=== PATIENT | female | born 1965 | race Caucasian/White ===

== ENCOUNTER 2018-06-10 18:52 | Observation (INO) | payer MEDICAID ==
[2018-06-10 19:17] VITALS: BMI 33.0
[2018-06-10] MEDS ORDERED: Benzocaine/Butamben/Tetracai 14-2-2% TOP Spray TOP STA (19:29)
--- NOTE | 2018-06-10 20:17 | ED PDOC ---
Arrival/HPI - General Chief Complaint: ENT Problem Time Seen by Provider: 06/10/18 19:24 Historian: Patient - History of Present Illness Narrative History of Present Illness (Text): 06/10/18 19:29 Sadi Ramos is a 52 year old female who presents to the Emergency department complaining of a foreign body sensation in her throat. Patient states she has a brewer bone stuck in her throat after eating brewer this evening. Patient notes she choked on the bone and her performed the Heimlich maneuver on her but is still feels something stuck in her throat. Patient denies any vomiting, shortness of breath, chest pain, abdominal pain, or any other complaints. Symptom Onset: Gradual Symptom Course: Unchanged Activities at Onset: Eating Context: Home Past Medical History - Provider Review Nursing Documentation Reviewed: Yes - Infectious Disease Hx of Infectious Diseases: None - Psychiatric Hx Substance Use: No - Surgical History Hx Section: Yes Hx Hysterectomy: Yes Family/Social History - Physician Review Nursing Documentation Reviewed: Yes Family/Social History: Unknown Family HX Smoking Status: Never Smoked Hx Alcohol Use: No Hx Substance Use: No Allergies/Home Meds Allergies/Adverse Reactions: Allergies No Known Allergies Allergy (Verified 06/10/18 19:16) Home Medications: Home Meds Medication Instructions Recorded Confirmed No Known Home Med 06/10/18 06/10/18 Review of Systems - Physician Review All systems were reviewed & negative as marked: Yes - Review of Systems Constitutional: Normal. absent: Fevers Eyes: Normal ENT: Other (+foreign body sensation in throat) Respiratory: Normal. absent: SOB, Cough Cardiovascular: Normal. absent: Chest Pain Gastrointestinal: Normal. absent: Abdominal Pain, Diarrhea, Nausea, Vomiting Genitourinary Female: Normal. absent: Dysuria, Frequency, Hematuria, Urine Output Changes Musculoskeletal: Normal. absent: Back Pain, Neck Pain Skin: Normal. absent: Rash Neurological: Normal. absent: Headache, Dizziness Endocrine: Normal Hemo/Lymphatic: Normal Psychiatric: Normal Physical Exam Vital Signs Reviewed: Yes Vital Signs Temp Pulse Resp BP Pulse Ox 06/10/18 19:17 97.6 F 93 H 18 141/97 H 95 Temperature: Afebrile Blood Pressure: Normal Pulse: Regular Respiratory Rate: Normal Appearance: Positive for: Well-Appearing, Non-Toxic, Comfortable Pain Distress: None Mental Status: Positive for: Alert and Oriented X 3 - Systems Exam Head: Present: Atraumatic, Normocephalic Pupils: Present: PERRL Extroacular Muscles: Present: EOMI Conjunctiva: Present: Normal Mouth: Present: Moist Mucous Membranes Neck: Present: Normal Range of Motion Respiratory/Chest: Present: Clear to Auscultation, Good Air Exchange. No: Respiratory Distress, Accessory Muscle Use Cardiovascular: Present: Regular Rate and Rhythm, Normal S1, S2. No: Murmurs Abdomen: No: Tenderness, Distention, Peritoneal Signs Back: Present: Normal Inspection Upper Extremity: Present: Normal Inspection. No: Cyanosis, Edema Lower Extremity: Present: Normal Inspection. No: Edema Neurological: Present: GCS=15, CN II-XII Intact, Speech Normal Skin: Present: Warm, Dry, Normal Color. No: Rashes Psychiatric: Present: Alert, Oriented x 3, Normal Insight, Normal Concentration Medical Decision Making ED Course and Treatment: 06/10/18 19:29 Impression: 52 year old female complaining of a foreign body sensation in throat after eating brewer. Plan: -- CT Neck Soft Tissue w/o contrast -- Cetacaine -- Reassess and disposition Prior Visits: Notes and results from previous visits were reviewed. Progress Notes: 06/10/18 20:[address] Munoz, ENT, who is aware and agrees with plan. Pending CT Neck Soft Tissue. 06/10/18 23:15 CT Neck Soft Tissue: ESOPHAGUS: An approximately 1.6 x 0.4 cm linear hyperdense object is seen in the lower cervical esophagus anterior to the C5-6, C6-7 levels thought compatible with a bone. This corresponds with the given history. PHARYNX: Unremarkable appearance of the nasopharynx, oropharyx, and hypopharynx. No pharyngeal mucosal based mass lesions. LARYNX: Normal appearance of the larynx. Unremarkable epiglottis. RETROPHARYNGEAL SPACE: The retropharyngeal soft tissues appear within normal limits. SALIVARY GLANDS: Unremarkable appearance of the parotid, submandibular, and sublingual glands. LYMPH NODES: Multiple bilateral anterior chain lymph nodes are present; several of which are mildly enlarged bilaterally. THYROID: Unremarkable appearance of the thyroid. No thyroid nodule seen. BONES: No aggressive appearing osseous lesion. No acute osseous abnormality. Anterior marginal spurring arises from C6-C7. IMPRESSION: 1. A 1.6 x 0.4 cm bone fragment is seen in the lower cervical esophagus anterior to the C5-6, C6-7 levels. 2. Bilateral anterior chain lymph nodes noted; several of which are mildly enlarged bilaterally. Electronically signed on Jun 10, 2018 11:12:26 PM EDT by: Hamzah Rider M.D., TREVOR Certified By [facility] Fellowship Trained MRI and CT Specialist 06/10/18 23:[address] Munoz, recommends GI consult due to location of foreign body. 06/10/18 23:[address] Ramirez, GI, who states he will come in to perform foreign body removal. 06/10/18 23:45 Reviewed EKG, NSR at 87 bpm[address] Non-specific ST/T wave changes. - Lab Interpretations I have reviewed the lab results: Yes - RAD Interpretation Suture Polisher: Radiologist - EKG Interpretation Interpreted by ED Physician: Yes Type: 12 lead EKG - Medication Orders Current Medication Orders: Discontinued Medications Benzocaine/Butamben/Tetracaine HCl (Cetacaine 14%-2%-2% 56 Gm) 20 spry TOP STAT STA Stop: 06/10/18 19:30 Last Admin: 06/10/18 19:50 Dose: 20 spry - Scribe Statement The provider has reviewed the documentation as recorded by the Wolf Farris Provider Scribe Attestation: All medical record entries made by the Scribe were at my direction and personally dictated by me. I have reviewed the chart and agree that the record accurately reflects my personal performance of the history, physical exam, medical decision making, and the department course for this patient. I have also personally directed, reviewed, and agree with the discharge instructions and disposition. Disposition/Present on Arrival - Present on Arrival History of DVT/PE: No History of Uncontrolled Diabetes: No Urinary Catheter: No History of Decub. Ulcer: No History Surgical Site Infection Following: None - Disposition Forms: [employer] (Arabic)
[2018-06-10] MEDS ORDERED: Sodium Chloride 0.9% 1,000 ML IV SCH (23:45)
[2018-06-10] MEDS ORDERED: Morphine 2 mg/ml ISec IVP STA (23:47)
[2018-06-10] MEDS ORDERED: Sevoflurane - Inhalation Anesthetic Liq (250 ml) ONE (23:51)
[2018-06-10 23:53] LABS: ALBUMIN 4.1 g/dL (3.0-4.8); ALT/SGPT 11 U/L (7-56); AST/SGOT 25 U/L (14-36); BLOOD UREA NITROGEN 15 mg/dL (7-21); CALCIUM 9.1 mg/dL (8.4-10.5); GFR NON-AFRICAN AMERICAN > 60
[2018-06-10] MEDS ORDERED: Propofol 10 mg/ml Inj (20 ML) ONE (23:55)
[2018-06-10] MEDS ORDERED: Succinylcholine 200 mg/10 ml Inj IV ONE (23:56)
[2018-06-10 23:58] LABS: BASO # 0.02 K/mm3 (0.0-2.0); BASO % 0.2 % (0.0-3.0); EOS # 0.1 (0.0-0.7); EOS % 1.3 % (1.5-5.0); LYMPH # 1.8 (1.2-3.4); LYMPH % 18.5 % (22.0-35.0); MEAN CELL VOLUME 93.1 fl (80.0-105.0); MEAN CORPUSCULAR HEMOGLOBIN 30.3 pg (25.0-35.0); MEAN CORPUSCULAR HGB CONC 32.6 g/dl (31.0-37.0); MEAN PLATELET VOLUME 10.9 fl (7.0-11.0); MONO # 0.3 (0.1-0.6); MONO % 3.4 % (1.0-6.0); RBC 4.62 10^6/uL (3.5-6.1); RED CELL DISTRIBUTION WIDTH 12.6 % (11.5-14.5); WHITE BLOOD COUNT 9.9 10^3/uL (4.5-11.0)
[2018-06-11 00:02] LABS: INR 1.1; PARTIAL THROMBOPLASTIN TIME 35.5 Seconds (26.9-38.3); PROTHROMBIN TIME 12.2 SECONDS (9.4-12.5)
[2018-06-11] MEDS ORDERED: Propofol 10 mg/ml Inj (20 ML) ONE (02:53)
[2018-06-11] MEDS ORDERED: Sodium Chloride 0.9% 1,000 ML IV SCH (03:30)
[2018-06-11 07:19] VITALS: O2SAT 95
--- NOTE | 2018-06-11 07:50 | RAD ---
Date of service: 06/10/2018 HISTORY: fb esophagus COMPARISON: No prior. TECHNIQUE: 1 view obtained. FINDINGS: LUNGS: No active pulmonary disease. PLEURA: No significant pleural effusion identified, no pneumothorax apparent. CARDIOVASCULAR: No aortic atherosclerotic calcification present. Normal cardiac size. No pulmonary vascular congestion. OSSEOUS STRUCTURES: No significant abnormalities. VISUALIZED UPPER ABDOMEN: Normal. OTHER FINDINGS: None. IMPRESSION: No active disease.
--- NOTE | 2018-06-11 08:48 | CON ---
DATE: 06/11/2018 HISTORY OF PRESENT ILLNESS: I saw Ms. Ramos this morning. She is a 52-year-old female seen in the emergency room with complaints of dysphagia. I was told by the emergency room physician, the patient swallowed meat and rice and subsequently got a "bone struck" in her esophagus. At bedside, the patient is complaining about painful swallowing and points to the back of her throat. I evaluated the patient's CT of the neck in the emergency room, which revealed a foreign body in the area of the cervical esophagus. There is no obstruction noted distally. The patient denied past GI history, only noted that she had a hysterectomy and childbirth. She is on no medications at the current time point. She periodically experiences this heartburn at home. PHYSICAL EXAMINATION VITAL SIGNS: I reviewed this patient's vital signs. HEENT: Noncontributory. LUNGS: Clear to auscultation. HEART: Regular rhythm. ABDOMEN: Soft. No tenderness elicited. ASSESSMENT: This is a 52-year-old female seen in the emergency room with complaints of severe dysphagia and found to have an esophageal foreign body by CT scan. PLAN: Plan for urgent endoscopy. Recommendations after the procedure. Merrill Montemayor DO, :PhD NANI
--- NOTE | 2018-06-11 09:57 | CT ---
Date of service: 06/10/2018 PROCEDURE: CT NECK WITHOUT CONTRAST HISTORY: r/o fb COMPARISON: None available. TECHNIQUE: CT of the neck without intravenous contrast. Coronal and sagittal reformats generated. Radiation dose: Total exam DLP = 474.96 mGy-cm. This CT exam was performed using one or more of the following dose reduction techniques: Automated exposure control, adjustment of the mA and/or kV according to patient size, and/or use of iterative reconstruction technique. FINDINGS: NASOPHARYNX: Unremarkable. SUPRAHYOID NECK: Unremarkable oropharynx, oral cavity, parapharyngeal space and retropharyngeal space. INFRAHYOID NECK: Unremarkable larynx, hypopharynx, and supraglottic space. Vocal cords intact. MASS: None. GLANDS: Parotid and submandibular glands unremarkable. Normal size thyroid gland, without nodule. LYMPH NODES: Normal. No lymphadenopathy. CERVICAL SPINE: No fracture or focal lesion. OTHER FINDINGS: 1.6 x 0.4 centimeter linear bone fragment in the lower cervical esophagus anterior to the C5-6 and C6-7 levels. IMPRESSION: 1.6 x 0.4 centimeter linear bone fragment in the lower cervical esophagus anterior to the C5-6 and C6-7 levels.
--- NOTE | 2018-06-11 13:12 | PN ---
DATE: 06/11/2018 SUBJECTIVE: I examined Mrs. Ramos at 08:34 this morning. Earlier today, she had an endoscopic procedure performed for removal of an esophageal foreign body located in cervical esophagus. At the bedside at the current time point, the patient denies any episode of nausea or vomiting or rectal bleeding, but still experiencing some degree of discomfort in her esophagus due to the ulcerations noted at the time of endoscopy. The patient has been handling a liquid diet without problems. She requested advanced diet to a soft. Overall, she feels significantly improved overall relative to before the procedure. I reviewed the issues found on the patient's endoscopy and she also has a copy for endoscopy report. The patient was given two scripts. One in the form of pantoprazole 40 mg to be taken daily prior to breakfast. Secondly, Carafate suspension which will be taken 1 teaspoon 30 minutes after meals and at bedtime. She was advised to follow up with her family physician and review the current medications. Note that the patient was advised to take the Carafate medication roughly for one to two weeks at a time, by one week interval. Antireflux measures were also advised. She was advised to use significant dietary discretion due to the significant ulcerations noted in the esophagus. Note that she did have significant mucosal effacement due to substantial retching at the time of the foreign body impaction. The patient will be discharged later this morning. Merrill Montemayor DO, PhD NANI
[2018-06-11 14:38] VITALS: BP 138/83; PULSE 90; RESP 20; TEMP 98.1
--- NOTE | 2018-06-11 16:26 | CARD ---
APPROVED REPORT Date of service: 06/10/2018 EKG Measurement Heart [id number] <Conclusion> Normal sinus rhythm Minimal voltage criteria for LVH, may be normal variant
== END 2018-06-11 17:54 | disposition home or self-care (01) ==
LOC: ED 18:52 → SDS 06-11 02:23 → 5RSO 06-11 02:33
PROVIDERS: ADMIT Internal Medicine Gastroenterology; ATTEND Internal Medicine Gastroenterology
DX: T17.228A Food in pharynx causing other injury, initial encounter (principal); K22.10 Ulcer of esophagus without bleeding; R13.10 Dysphagia, unspecified; K25.9 Gastric ulcer, unspecified as acute or chronic, without hemorrhage or perforation; K44.9 Diaphragmatic hernia without obstruction or gangrene; K29.70 Gastritis, unspecified, without bleeding; Z98.891 History of uterine scar from previous surgery; Z90.710 Acquired absence of both cervix and uterus
CPT/HCPCS: 43247; 70490; 71045; 80053; 85025; 85610; 85730; 93005; 96374; G0378; J0330; J2001; J2270; J2704; J7030